=== PATIENT | male | born 1960 | race African-American/Black ===

== ENCOUNTER 2017-11-25 03:48 | Emergency (ER) | payer MEDICAID ==
[~2017-11-25] VITALS: Ht 180.3 cm; Wt 73.0 kg
[2017-11-25] MEDS ORDERED: ACETAMINOPHEN 325MG TABLET PO ONE (07:00)
[2017-11-25 09:30] VITALS: BP 135/83
== END 2017-11-25 09:35 | disposition home or self-care (01) ==
LOC: ER 03:48
DX: S05.12XA Contusion of eyeball and orbital tissues, left eye, initial encounter (principal); R03.0 Elevated blood-pressure reading, without diagnosis of hypertension; W19.XXXA Unspecified fall, initial encounter; Y93.89 Activity, other specified; Y92.811 Bus as the place of occurrence of the external cause; Z59.0 Homelessness
CPT/HCPCS: 71046; 99284

== ENCOUNTER 2023-01-10 20:54 | Emergency (ER) | payer MEDICAID, OTHER ==
[~2023-01-10] VITALS: Ht 172.7 cm; Wt 75.0 kg
[2023-01-10 21:04] VITALS: BP 116/71; PULSE 81; RESP 16; TEMP 98.6; O2SAT 97
[2023-01-10] MEDS ORDERED: BACITRACIN 15GM TUBE TOP ONE (22:00)
[2023-01-10] MEDS ORDERED: TETANUS, DIPHTHERIA, PERTUSSIS VAC/PF 0.5ML (>10YR OLD) IM ONE ×2 (22:00→22:30)
[2023-01-10] MEDS ORDERED: IBUPROFEN 400MG TABLET PO ONE (22:00)
[2023-01-10] MEDS ORDERED: ACETAMINOPHEN 325MG TABLET PO ONE (22:00)
[2023-01-10 22:45] LABS: BASOPHILS % 0.6 % (0.0-2.0); EOSINOPHILS % 1.4 % (0.0-5.0); HEMATOCRIT. 44.6 % (42.0-52.0); LYMPHOCYTES % 28.3 % (20.0-50.0); MEAN CORPUSCULAR HGB CONC 33.6 g/dL (31.0-37.0); MEAN CORPUSCULAR VOLUME 86.5 fL (80.0-94.0); MEAN PLATELET VOLUME 9.2 fl (7.4-10.4); MONOCYTES % 10.1 % (2.0-8.0); NEUTROPHILS % 59.6 % (40.0-76.0); PLATELET 188 x1000/uL (130-400); RED BLOOD CELL COUNT 5.16 mill/uL (4.7-6.1); RED CELL DISTRIBUTION WIDTH 17.7 % (11.6-14.6); WHITE BLOOD COUNT 7.5 x1000/uL (4.5-11.0)
[2023-01-10 22:58] LABS: CHLORIDE 109 mEq/L (98-107); INDEX HEMOLYSI 1 (1-3); INDEX ICTERIC 1 (1-4); INDEX LIPEMIC 1 (1-3); POTASSIUM 3.9 mEq/L (3.5-5.1); SODIUM 136 mEq/L (136-145)
[2023-01-10 23:05] LABS: ALANINE AMINOTRANSFERASE 12 IU/L (13-61); ALBUMIN 3.1 g/dL (3.4-5.0); ASPARTATE AMINOTRANSFERASE 9 IU/L (15-37); BILIRUBIN TOTAL 0.3 mg/dL (0.1-1.0); CARBON DIOXIDE 27 mEq/L (21-32); CREATININE 1.1 mg/dL (0.6-1.3); GLUCOSE 108 mg/dL (70-105); PROTEIN TOTAL 8.3 g/dL (6.0-8.3); UREA NITROGEN BLOOD 21 mg/dL (7-21)
[2023-01-11] MEDS ORDERED: TOPUD PO (00:15)
[2023-01-11] MEDS ORDERED: BO1 TP (00:17)
== END 2023-01-11 01:12 | disposition home or self-care (01) ==
LOC: ER 20:54
DX: S90.822A Blister (nonthermal), left foot, initial encounter (principal); X58.XXXA Exposure to other specified factors, initial encounter; Y93.89 Activity, other specified; Y92.89 Other specified places as the place of occurrence of the external cause; Y99.8 Other external cause status
CPT/HCPCS: 80053; 82962; 85025; 36415; 90715; 90471; 99284; Z7610